=== PATIENT | female | born 1930 | race Caucasian/White ===

== ENCOUNTER 2016-10-19 12:38 | Emergency (ER) | payer MEDICARE, MEDICAID ==
[~2016-10-19] VITALS: Ht 162.6 cm; Wt 59.0 kg
[2016-10-19] MEDS ORDERED: HYDROCODONE/APAP 10/325MG 1 EA TABLET ONE (12:58)
[2016-10-19] MEDS ORDERED: TDAP [DIPH/PERTUSSIS/TET] 0.5 ML VIAL IM ONE ×2 (12:59→13:00)
[2016-10-19] MEDS ORDERED: HYDROCODONE/APAP 10/325MG 1 EA TABLET PO ONE (13:00)
--- NOTE | 2016-10-19 13:00 | NUR ---
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 PT AAOX3. REPORTS DRINKING MINIMAL AMOUNT OF ALCOHOL EVERYDAY BUT NOT TODAY. REPORTS OF LEFT SHOULDER PAIN. NOTED LACERATION ON LOWER LIP AND CHIN AREA. VSS. SEEN BY ROLA NICOLE FOR EVAL. SAFETY AND COMFORT MEASURES PROVIDED. WILL MONITOR.
--- NOTE | 2016-10-19 13:12 | NUR ---
PT MEDICATED ORDERED.
--- NOTE | 2016-10-19 13:22 | NUR ---
called radiology for XRAY.
--- NOTE | 2016-10-19 13:29 | NUR ---
xray in progress at [facility].
[2016-10-19] MEDS ORDERED: MORPHINE SULFATE INJ 4 MG/ML DISP.SYRIN ONE (15:06)
--- NOTE | 2016-10-19 15:10 | NUR ---
KELSIE MATHIS AT FOR CAST AND SLING APPLICATION. EDUCATION RPOVIDED. ALL QUESTIONS ANSWERED.
[2016-10-19] MEDS ORDERED: MORPHINE SULFATE INJ 2 MG/ML DISP.SYRIN IM ONE (15:30)
--- NOTE | 2016-10-19 15:43 | NUR ---
Patient discharged to home in stable condition. Written and verbal after care instructions given. Patient verbalizes understanding of instruction. Pt safely assisted by engineering laboratory technician via wheelchair to private vehicle accompanied by daughter Chantel to home.
[2016-10-19 15:46] VITALS: BP 159/82
== END 2016-10-19 15:46 | disposition home or self-care (01) ==
LOC: ER 12:41
DX: S42.402A Unspecified fracture of lower end of left humerus, initial encounter for closed fracture (principal); S01.81XA Laceration without foreign body of other part of head, initial encounter; S01.511A Laceration without foreign body of lip, initial encounter; S00.83XA Contusion of other part of head, initial encounter; E03.9 Hypothyroidism, unspecified; I10 Essential (primary) hypertension; I25.2 Old myocardial infarction; Z23 Encounter for immunization; W01.0XXA Fall on same level from slipping, tripping and stumbling without subsequent striking against object, initial encounter; Y93.89 Activity, other specified; Y92.89 Other specified places as the place of occurrence of the external cause; Y99.9 Unspecified external cause status
CPT/HCPCS: 73060-TC; 90715; A4606; A6402; A6403; J2270; Z7610

== ENCOUNTER 2016-12-07 12:46 | Emergency (ER) | payer OTHER, MEDICAID ==
[~2016-12-07] VITALS: Ht 162.6 cm; Wt 59.9 kg
[2016-12-07 13:12] VITALS: BP 151/78
== END 2016-12-07 14:28 | disposition home or self-care (01) ==
LOC: ER 12:47
DX: S42.402D Unspecified fracture of lower end of left humerus, subsequent encounter for fracture with routine healing (principal); I10 Essential (primary) hypertension; E03.9 Hypothyroidism, unspecified; H40.9 Unspecified glaucoma; I25.2 Old myocardial infarction; M19.90 Unspecified osteoarthritis, unspecified site; X58.XXXD Exposure to other specified factors, subsequent encounter; Y93.89 Activity, other specified; Y92.89 Other specified places as the place of occurrence of the external cause; Y99.9 Unspecified external cause status
CPT/HCPCS: 73060; 99284; A4606; Z7610